=== PATIENT | male | born 1990 | race American Indian/Alaskan Native ===

== ENCOUNTER 2019-09-04 16:59 | Emergency (ER) | payer SELFPAY ==
--- NOTE | 2019-09-04 21:28 | Event Note ---
ED Screening Note ED Screening Note: states he has had stomach cramping since 08/26/2019 diarrhea states he had one episode of vomiting two days ago generalized body aches no fever PMHx none no daily meds allergy: none +tobacco non drinker no drug use This initial assessment/diagnostic orders/clinical plan/treatment(s) is/are subject to change based on patients health status, clinical progression and re- assessment by fellow clinical providers in the ED. Further treatment and workup at subsequent clinical providers discretion. Patient/guardian urged not to elope from the ED as their condition may be serious if not clinically assessed and managed. Initial orders include: labs, UA
[2019-09-04 22:19] LABS: Basophils # (Auto) 0.1 K/mm3 (0.0-0.1); Basophils % (Auto) 0.5 % (0.0-1.8); Eosinophils # (Auto) 0.2 K/mm3 (0.0-0.4); Eosinophils % (Auto) 1.7 % (0.0-4.3); Hematocrit 44.3 % (35.5-45.6); Hemoglobin 15.1 gm/dl (11.8-15.2); Lymphocytes # (Auto) 2.9 K/mm3 (1.2-5.4); Lymphocytes % (Auto) 27.7 % (13.4-35.0); Mean Corpuscular HGB Conc 34 % (32-34); Mean Corpuscular Volume 89 fl (84-94); Monocytes % (Auto) 9.8 % (0.0-7.3); Platelet Count 334 K/mm3 (140-440); Red Blood Count 4.99 M/mm3 (3.65-5.03); Red Cell Distribution Width 14.1 % (13.2-15.2)
[2019-09-04 22:43] LABS: Alanine Aminotransferase 23 units/L (7-56); Albumin 4.1 g/dL (3.9-5); BUN/Creatinine Ratio 9; Blood Urea Nitrogen 7 mg/dL (9-20); Calcium 9.8 mg/dL (8.4-10.2); Hemolysis Index 2
[2019-09-04 23:07] LABS: Bilirubin,Urine NEG (Negative); Blood,Urine NEG (Negative); Color,Urine Amber (Yellow); Mucus,Urine 3+ /HPF
[2019-09-04] MEDS ORDERED: FAMOTIDINE 20 MG/2 ML INJ IV ONE (23:34)
[2019-09-04] MEDS ORDERED: ONDANSETRON 4 MG/2 ML INJ IV ONE (23:34)
[2019-09-04] MEDS ORDERED: fentaNYL 100 MCG/2 ML INJ IV ONE (23:34)
[2019-09-04] MEDS ORDERED: SODIUM CHLORIDE 0.9% 1000 ML 1,000 ML IV ONE (23:34)
--- NOTE | 2019-09-04 23:39 | Emergency Department Report ---
HPI - General Chief Complaint: Abdominal Pain Time Seen by Provider: 09/04/19 21:27 - HPI HPI: Room 37 The patient is a 28-year-old male presenting with chief complaint low pelvic pain nausea vomiting. Patient states his symptoms began 08/26/2019 pain in the midepigastric region described as cramping and intermittent in nature. Patient states she had nausea vomiting and diarrhea. Patient describes his abdominal pain is cramping and radiating to his back. Patient states 3 days agoepisode while standing stating that he began to feel hot and diaphoretic and then lost consciousness. Patient gives his abdominal pain a score of 4/10. Denies any recent antibiotic use Location: [See above] Duration: [See above] Quality: [See above] Severity: [See above] Timing: [See above] Context: [See above] Modifying factors: [See above] Associated signs and symptoms: [see above] Mode of transportation: The patient states his mother brought him to the [facility] department and he is not driving ED Past Medical Hx - Past Medical History Previous Medical History?: Yes Hx Asthma: Yes - Surgical History Past Surgical History?: No - Family History Family history: no significant - Social History Smoking Status: Current Every Day Smoker (1/7 per day) Substance Use Type: None (denies illicit drug use) - Medications Home Medications: Home Medications Medication Instructions Recorded Confirmed Last Taken Type Ciprofloxacin HCl [Ciprofloxacin 500 mg PO Q12HR #14 tab 09/05/19 Unknown Rx TAB] Diphenoxylate/Atropine [Lomotil] 1 - 2 tab PO QID PRN #20 tablet 09/05/19 Unknown Rx HYDROcodone/APAP 5-325 [[place] 1 - 2 each PO Q6HR PRN #14 tablet 09/05/19 Unknown Rx 5/325] Promethazine [Phenergan] 25 mg PO Q6HR PRN #20 tab 09/05/19 Unknown Rx Promethazine [Phenergan] 25 mg [place] Q6HR PRN #5 supp.rect 09/05/19 Unknown Rx metroNIDAZOLE [Flagyl] 500 mg PO Q8HR #21 tablet 09/05/19 Unknown Rx ED Review of Systems ROS: Stated complaint: ABD PAIN,HOT AND COLD SPELLS,DIARRHEA,VOMITING Other details as noted in HPI Constitutional: fever (subjective) Eyes: denies: eye pain ENT: denies: throat pain Respiratory: no symptoms reported Cardiovascular: denies: chest pain Endocrine: no symptoms reported Gastrointestinal: abdominal pain, nausea, vomiting, diarrhea Genitourinary: denies: dysuria Musculoskeletal: back pain Neurological: headache Physical Exam - Physical Exam Vital Signs: Vital Signs 09/04/19 09/04/19 21:19 21:27 Temperature 98.0 F 98 F Pulse Rate 63 68 Respiratory 18 18 Rate Blood Pressure 127/77 127/77 O2 Sat by Pulse 98 97 Oximetry Physical Exam: GENERAL: The patient is well-developed well-nourished male lying on stretcher not appearing to be in acute distress. [] HEENT: Normocephalic. Atraumatic. Extraocular motions are intact. Patient has moist mucous membranes. NECK: Supple. Trachea midline CHEST/LUNGS: Clear to auscultation. There is no respiratory distress noted. HEART/CARDIOVASCULAR: Regular. There is no tachycardia. There is no gallop rub or murmur. ABDOMEN: Abdomen is soft, with mild discomfort to palpation in the right upper quadrant, left lower quadrant and midepigastric region. There is no rebound or guarding. Patient has normal bowel sounds. There is no abdominal distention. SKIN: There is no rash. There is no edema. There is no diaphoresis. NEURO: The patient is awake, alert, and oriented. The patient is cooperative. The patient has normal speech MUSCULOSKELETAL: There is no evidence of acute injury. ED Course Vital Signs 09/04/19 09/04/19 21:19 21:27 Temperature 98.0 F 98 F Pulse Rate 63 68 Respiratory 18 18 Rate Blood Pressure 127/77 127/77 O2 Sat by Pulse 98 97 Oximetry ED Medical Decision Making - Lab Data Result diagrams: 09/04/19 21:42 09/04/19 21:42 Laboratory Tests 09/04/19 09/04/19 09/04/19 21:42 21:42 21:42 WBC 10.5 RBC 4.99 Hgb 15.1 Hct 44.3 MCV 89 MCH 30 MCHC 34 RDW 14.1 Plt Count 334 Lymph % (Auto) 27.7 Bennett % (Auto) 9.8 H Eos % (Auto) 1.7 Baso % (Auto) 0.5 Lymph # 2.9 Bennett # 1.0 H Eos # 0.2 Baso # 0.1 Seg Neutrophils % 60.3 Seg Neutrophils # 6.3 Sodium 138 Potassium 4.0 Chloride 100.5 Carbon Dioxide 19 L Anion Gap 23 BUN 7 L Creatinine 0.8 Estimated GFR > 60 BUN/Creatinine Ratio 9 Glucose 100 Calcium 9.8 Phosphorus 3.70 Magnesium 2.20 Total Bilirubin 0.40 AST 16 ALT 23 Alkaline Phosphatase 109 Total Creatine Kinase 196 H Total Protein 7.5 Albumin 4.1 Albumin/Globulin Ratio 1.2 Lipase 9 L Urine Color Urine Turbidity Urine pH Ur Specific [place] Urine Protein Urine Glucose (UA) Urine Ketones Urine Blood Urine Nitrite Urine Bilirubin Urine Urobilinogen Ur Leukocyte Esterase Urine WBC (Auto) Urine RBC (Auto) U Epithel Cells (Auto) Urine Mucus 09/04/19 22:14 WBC RBC Hgb Hct MCV MCH MCHC RDW Plt Count Lymph % (Auto) Bennett % (Auto) Eos % (Auto) Baso % (Auto) Lymph # Bennett # Eos # Baso # Seg Neutrophils % Seg Neutrophils # Sodium Potassium Chloride Carbon Dioxide Anion Gap BUN Creatinine Estimated GFR BUN/Creatinine Ratio Glucose Calcium Phosphorus Magnesium Total Bilirubin AST ALT Alkaline Phosphatase Total Creatine Kinase Total Protein Albumin Albumin/Globulin Ratio Lipase Urine Color Nuria Urine Turbidity Clear Urine pH 5.0 Ur Specific [place] 1.030 Urine Protein 30 mg/dl Urine Glucose (UA) Neg Urine Ketones 20 Urine Blood Neg Urine Nitrite Neg Urine Bilirubin Neg Urine Urobilinogen 2.0 Ur Leukocyte Esterase Neg Urine WBC (Auto) 2.0 Urine RBC (Auto) 4.0 U Epithel Cells (Auto) 1.0 Urine Mucus 3+ - Radiology Data Radiology results: report reviewed (CT abdomen and pelvis), image reviewed (CT abdomen and pelvis) [address] [address] Cat Scan Report Signed Patient: TEJAS MEZA MR#: [id number] : 1990 Acct:[id number] Age/Sex: 28 / M ADM Date: 09/04/19 Loc: ED Attending Dr: Ordering Physician: CHARLETTE MARCELINO MD Date of Service: 09/04/19 Procedure(s): CT abdomen pelvis w con Accession Number(s): [id number] cc: CHARLETTE MARCELINO MD CT OF THE ABDOMEN AND PELVIS WITH INTRAVENOUS CONTRAST INDICATION / CLINICAL INFORMATION: Epigastric pain with nausea and vomiting. TECHNIQUE: The patient received 100 cc Omnipaque [address] scans at this location are performed using CT dose reduction for ALARA by means of automated exposure control. COMPARISON: None available. FINDINGS: ABDOMEN: The liver, spleen, gallbladder, bile ducts, pancreas, adrenal glands and kidneys demonstrate no significant abnormality. There is mild bowel wall thickening involving the right and transverse colon. I see no evidence of bowel obstruction or free air. No adenopathy is seen. The lung bases are clear. PELVIS: The distal ureters, urinary bladder and prostate gland are normal. There is no evidence of appendicitis or diverticulitis. No abnormal mass or fluid collection is seen. I do not identify a h ernia. No acute osseous abnormality is noted. IMPRESSION: Mild nonspecific right colitis. Signer Name: Pedro Norris MD Signed: 09/05/2019 1:22 AM Workstation Name: [id number] Transcribed By: RT Dictated By: Pedro Norris MD Electronically Authenticated By: Pedro Norris MD Signed Date/Time: 09/05/19121 DD/ 6 TD/TT: - Differential Diagnosis gastroenteritis, dehydration Critical care attestation.: If time is entered above; I have spent that time in minutes in the direct care of this critically ill patient, excluding procedure time. ED Disposition Clinical Impression: Acute abdominal pain, Acute colitis Disposition: - TO HOME OR SELFCARE Is pt being admited?: No Does the pt Need Aspirin: No Condition: Stable Instructions: Infectious Colitis (ED) Additional Instructions: Return to the emergency department should you develop worsening symptoms, inability to tolerate food or liquids, high fever or any other concerns Prescriptions: Ciprofloxacin HCl [Ciprofloxacin TAB] 500 mg PO Q12HR #14 tab metroNIDAZOLE [Flagyl] 500 mg PO Q8HR #21 tablet Diphenoxylate/Atropine [Lomotil] 1 - 2 tab PO QID PRN #20 tablet PRN Reason: Diarrhea HYDROcodone/APAP 5-325 [[place] 5/325] 1 - 2 each PO Q6HR PRN #14 tablet PRN Reason: Pain Promethazine [Phenergan] 25 mg PO Q6HR PRN #20 tab PRN Reason: Nausea Promethazine [Phenergan] 25 mg [place] Q6HR PRN #5 supp.rect PRN Reason: Vomiting Referrals: PRIMARY CARE, [Primary Care Provider] - 3-5 Days LUKE LUEVANO MD [Staff Physician] - 3-5 Days (Dr. Luevano is a endoscopy tech. Please follow up with him for further evaluation) Time of Disposition: 01:43
--- NOTE | 2019-09-05 01:26 | Cat Scan Report ---
CT OF THE ABDOMEN AND PELVIS WITH INTRAVENOUS CONTRAST INDICATION / CLINICAL INFORMATION: Epigastric pain with nausea and vomiting. TECHNIQUE: The patient received 100 cc Omnipaque [address] scans at this location are performed using CT dose reduction for ALARA by means of automated exposure control. COMPARISON: None available. FINDINGS: ABDOMEN: The liver, spleen, gallbladder, bile ducts, pancreas, adrenal glands and kidneys demonstrate no significant abnormality. There is mild bowel wall thickening involving the right and transverse c olon. I see no evidence of bowel obstruction or free air. No adenopathy is seen. The lung bases are c lear. PELVIS: The distal ureters, urinary bladder and prostate gland are normal. There is no evidence of ap pendicitis or diverticulitis. No abnormal mass or fluid collection is seen. I do not identify a herni a. No acute osseous abnormality is noted. IMPRESSION: Mild nonspecific right colitis. Signer Name: Pedro Norris MD Signed: 09/05/2019 1:22 AM Workstation Name: [id number]
[2019-09-05 02:22] VITALS: BP 136/84
== END 2019-09-05 02:22 | disposition home or self-care (01) ==
LOC: ED 16:59
DX: R10.13 Epigastric pain (principal); K52.89 Other specified noninfective gastroenteritis and colitis; J45.909 Unspecified asthma, uncomplicated; F17.210 Nicotine dependence, cigarettes, uncomplicated
CPT/HCPCS: 36415; 74177; 80053; 81001; 82550; 83690; 83735; 84100; 85025; 96361; 96374; 96375; 99284; J2405; J3010; J7030; Q9967

== ENCOUNTER 2020-11-15 14:17 | Emergency (ER) | payer SELFPAY ==
[2020-11-15 14:25] VITALS: BP 129/76
--- NOTE | 2020-11-15 14:40 | Emergency Department Report ---
ED ENT HPI - General Chief complaint: Sore Throat Stated complaint: STREP THROAT Time Seen by Provider: 11/15/20 14:29 Source: patient Mode of arrival: Ambulatory Limitations: No Limitations - History of Present Illness Initial comments: This is a pleasant 29-year-old male who presents the emergency department chief complaint of "I have strep throat." Patient reports sore throat, rash on his back, posterior cervical lymphadenopathy, cough and generalized malaise. Patient denies any known past medical history, current medication use or known allergies to medications. Denies any associated fever, chills, night sweats, headache, dizziness, blurry vision, nausea,, diarrhea, chest pain, shortness of breath, weakness or any other associated symptoms. He denies any sick contacts. - Related Data Previous Rx's Medication Instructions Recorded Last Taken Type Ciprofloxacin HCl [Ciprofloxacin 500 mg PO Q12HR #14 tab 09/05/19 Unknown Rx TAB] Diphenoxylate/Atropine [Lomotil] 1 - 2 tab PO QID PRN #20 tablet 09/05/19 Unknown Rx HYDROcodone/APAP 5-325 [[place] 1 - 2 each PO Q6HR PRN #14 tablet 09/05/19 Unknown Rx 5/325] Promethazine [Phenergan] 25 mg PO Q6HR PRN #20 tab 09/05/19 Unknown Rx Promethazine [Phenergan] 25 mg [place] Q6HR PRN #5 supp.rect 09/05/19 Unknown Rx metroNIDAZOLE [Flagyl] 500 mg PO Q8HR #21 tablet 09/05/19 Unknown Rx Amoxicillin/K Clav Tab [Augmentin 1 tab PO Q12HR #20 tab 11/15/20 Unknown Rx 875 mg] Fluticasone [Flonase] 1 spray NS QDAY #1 bottle 11/15/20 Unknown Rx Loratadine [Claritin] 10 mg PO DAILY #20 tablet 11/15/20 Unknown Rx Allergies Allergy/AdvReac Type Severity Reaction Status Date / Time No Known Allergies Allergy Unverified 09/04/19 21:28 ED Dental HPI - General Chief complaint: Sore Throat Stated complaint: STREP THROAT Time Seen by Provider: 11/15/20 14:29 Source: patient Mode of arrival: Ambulatory Limitations: No Limitations - Related Data Previous Rx's Medication Instructions Recorded Last Taken Type Ciprofloxacin HCl [Ciprofloxacin 500 mg PO Q12HR #14 tab 09/05/19 Unknown Rx TAB] Diphenoxylate/Atropine [Lomotil] 1 - 2 tab PO QID PRN #20 tablet 09/05/19 Unknown Rx HYDROcodone/APAP 5-325 [[place] 1 - 2 each PO Q6HR PRN #14 tablet 09/05/19 Unknown Rx 5/325] Promethazine [Phenergan] 25 mg PO Q6HR PRN #20 tab 09/05/19 Unknown Rx Promethazine [Phenergan] 25 mg [place] Q6HR PRN #5 supp.rect 09/05/19 Unknown Rx metroNIDAZOLE [Flagyl] 500 mg PO Q8HR #21 tablet 09/05/19 Unknown Rx Amoxicillin/K Clav Tab [Augmentin 1 tab PO Q12HR #20 tab 11/15/20 Unknown Rx 875 mg] Fluticasone [Flonase] 1 spray NS QDAY #1 bottle 11/15/20 Unknown Rx Loratadine [Claritin] 10 mg PO DAILY #20 tablet 11/15/20 Unknown Rx Allergies Allergy/AdvReac Type Severity Reaction Status Date / Time No Known Allergies Allergy Unverified 09/04/19 21:28 ED Review of Systems ROS: Stated complaint: STREP THROAT Other details as noted in HPI Comment: All other systems reviewed and negative Constitutional: denies: chills, fever Eyes: denies: eye pain, eye discharge, vision change ENT: ear pain, throat pain Respiratory: cough. denies: shortness of breath, wheezing Cardiovascular: denies: chest pain, palpitations Endocrine: no symptoms reported Gastrointestinal: denies: abdominal pain, nausea, diarrhea Genitourinary: denies: urgency, dysuria Musculoskeletal: denies: back pain, joint swelling, arthralgia Skin: denies: rash, lesions Neurological: denies: headache, weakness, paresthesias Psychiatric: denies: anxiety, depression Hematological/Lymphatic: denies: easy bleeding, easy bruising ED Past Medical Hx - Past Medical History Previous Medical History?: Yes Hx Asthma: Yes - Social History Smoking Status: Current Every Day Smoker (1/7 per day) Substance Use Type: None (denies illicit drug use) - Medications Home Medications: Home Medications Medication Instructions Recorded Confirmed Last Taken Type Ciprofloxacin HCl [Ciprofloxacin 500 mg PO Q12HR #14 tab 09/05/19 Unknown Rx TAB] Diphenoxylate/Atropine [Lomotil] 1 - 2 tab PO QID PRN #20 tablet 09/05/19 Unknown Rx HYDROcodone/APAP 5-325 [[place] 1 - 2 each PO Q6HR PRN #14 tablet 09/05/19 Unknown Rx 5/325] Promethazine [Phenergan] 25 mg PO Q6HR PRN #20 tab 09/05/19 Unknown Rx Promethazine [Phenergan] 25 mg [place] Q6HR PRN #5 supp.rect 09/05/19 Unknown Rx metroNIDAZOLE [Flagyl] 500 mg PO Q8HR #21 tablet 09/05/19 Unknown Rx Amoxicillin/K Clav Tab [Augmentin 1 tab PO Q12HR #20 tab 11/15/20 Unknown Rx 875 mg] Fluticasone [Flonase] 1 spray NS QDAY #1 bottle 11/15/20 Unknown Rx Loratadine [Claritin] 10 mg PO DAILY #20 tablet 11/15/20 Unknown Rx ED Physical Exam - General Limitations: No Limitations General appearance: alert, in no apparent distress - Head Head exam: Present: atraumatic, normocephalic - Eye Eye exam: Present: normal appearance, PERRL Pupils: Present: normal accommodation - ENT ENT exam: Present: normal exam, mucous membranes moist. Absent: normal orophraynx (Mild erythema to the posterior pharynx, no peritonsillar bulging, retropharyngeal bulging or tongue elevation. No exudate), TM's normal bilaterally (Erythema and bulging to the left tympanic membrane.) - Neck Neck exam: Present: normal inspection, full ROM. Absent: tenderness, meningismus - Respiratory Respiratory exam: Present: normal lung sounds bilaterally. Absent: respiratory distress, wheezes, rales, rhonchi, stridor, chest wall tenderness - Cardiovascular Cardiovascular Exam: Present: regular rate, normal rhythm, normal heart sounds. Absent: systolic murmur, diastolic murmur, rubs, gallop - GI/Abdominal GI/Abdominal exam: Present: soft, normal bowel sounds. Absent: distended, tenderness, guarding, rebound, rigid - Rectal Rectal exam: Present: deferred - Extremities Exam Extremities exam: Present: normal inspection, full ROM, normal capillary refill. Absent: tenderness, calf tenderness - Back Exam Back exam: Present: normal inspection, full ROM. Absent: tenderness, CVA tenderness (R), CVA tenderness (L) - Neurological Exam Neurological exam: Present: alert, oriented X3, normal gait - Psychiatric Psychiatric exam: Present: normal affect, normal mood - Skin Skin exam: Present: warm, dry, intact, normal color. Absent: rash ED Course Vital Signs 11/15/20 14:24 Temperature 98.4 F Pulse Rate 83 Respiratory 16 Rate Blood Pressure 129/76 [Right] O2 Sat by Pulse 95 Oximetry ED Medical Decision Making - Medical Decision Making Patient nontoxic in no acute distress. Vital signs are stable. He is PERC negative and low risk by Wells criteria for PE making this unlikely. His exam was consistent with a viral or allergic pharyngitis likely secondary postnasal drip but on his exam incidentally he did have an ear infection in his left ear. I will treat with antibiotics and recommended outpatient follow-up with primary care or urgent care. Instructed return to the ER with any change or worsening symptoms. He verbalized understanding of the diagnosis, treatment plan and follow-up instructions and all of his questions were answered. - Differential Diagnosis URI, viral pharyngitis, allergic rhinitis, otitis media Critical care attestation.: If time is entered above; I have spent that time in minutes in the direct care of this critically ill patient, excluding procedure time. ED Disposition Clinical Impression: Allergic rhinitis Qualifiers: Allergic rhinitis trigger: pollen Allergic rhinitis seasonality: seasonal Qualified Code(s): J30.1 - Allergic rhinitis due to pollen Acute otitis media Qualifiers: Otitis media type: suppurative Laterality: left Recurrence: non-recurrent Spontaneous tympanic membrane rupture: without spontaneous rupture Qualified Code(s): H66.002 - Acute suppurative otitis media without spontaneous rupture of ear drum, left ear Disposition: DC-01 TO HOME OR SELFCARE Is pt being admited?: No Condition: Stable Instructions: Otitis Media, Adult, [id number] Prescriptions: Amoxicillin/K Clav Tab [Augmentin 875 mg] 1 tab PO Q12HR #20 tab Loratadine [Claritin] 10 mg PO DAILY #20 tablet Fluticasone [Flonase] 1 spray NS QDAY #1 bottle
== END 2020-11-15 15:00 | disposition home or self-care (01) ==
LOC: ED 14:17
DX: J30.9 Allergic rhinitis, unspecified (principal); H66.92 Otitis media, unspecified, left ear; F17.200 Nicotine dependence, unspecified, uncomplicated; Z79.899 Other long term (current) drug therapy
CPT/HCPCS: 99281